=== PATIENT | female | born 1960 | race American Indian/Alaskan Native ===

== ENCOUNTER 2017-04-03 13:20 | Outpatient (CLI) | payer OTHER ==
--- NOTE | 2017-04-07 10:32 | Mammography Report ---
BILATERAL DIGITAL SCREENING MAMMOGRAM with CAD : 04/03/17 13:20:00 CLINICAL: Routine screening. COMPARISON:03/12/16 FINDINGS: The breasts are heterogeneously dense, which may obscure small masses. No mass, architectural distortion or suspicious calcifications. IMPRESSION: No mammographic evidence of malignancy. BI-RADS CATEGORY: 2 -- Benign RECOMMENDATION: Routine mammographic screening in one year. COMMENT: Patient follow-up letters are generated by our [employer] application.
== END 2017-04-03 13:21 | disposition home or self-care (01) ==
LOC: SPVWC 13:20
PROVIDERS: ATTEND Family Medicine
DX: Z12.31 Encounter for screening mammogram for malignant neoplasm of breast (principal)
CPT/HCPCS: 77067; G0202

== ENCOUNTER 2020-06-20 11:01 | Outpatient (CLI) | payer OTHER ==
--- NOTE | 2020-06-20 15:25 | Mammography Report ---
DIGITAL SCREENING MAMMOGRAM, 06/20/2020 CLINICAL INFORMATION / INDICATION: Routine screening mammography. SCREENING MAMMO TECHNIQUE: Digital bilateral 2D mammography was obtained in the craniocaudal and mediolateral obliqu e projections. COMPARISON: Prior mammogram 04/05/2018 and 04/03/2017 FINDINGS: Breast Density: The breasts are heterogeneously dense, which may obscure small masses. No dominant mass, suspicious calcifications, or architectural distortion in either breast. There has been no significant change compared with the prior examinations. IMPRESSION: No mammographic evidence of malignancy. Follow up recommendation: Routine yearly BI-RADS Category 1: Negative. A "normal" or negative report should not discourage follow up or biopsy of a clinically significant f inding. A written summary of these findings will be mailed to the patient. The patient will be entered into a mammography reporting system which will generate a reminder letter for the patient's next appointmen t at the appropriate interval. The [employer] recommends yearly mammograms starting at age 40 and continuing as l williams as a woman is in good health. Breast MRI is recommended for women with an approximate 20-25% or greater lifetime risk of breast cancer, including women with a strong family history of breast or ova to cancer or who have been treated for Hodgkin's disease. Signer Name: Gretchen Pyle MD Signed: 06/20/2020 3:21 PM Workstation Name: [id number]
== END 2020-06-20 11:02 | disposition home or self-care (01) ==
LOC: SPVWC 11:01
PROVIDERS: ATTEND Family Medicine
DX: Z12.31 Encounter for screening mammogram for malignant neoplasm of breast (principal)
CPT/HCPCS: 77067

== ENCOUNTER 2021-03-19 10:40 | Outpatient (CLI) | payer OTHER ==
--- NOTE | 2021-03-19 11:49 | Ultrasound Report ---
BILATERAL DIGITAL DIAGNOSTIC MAMMOGRAM WITH CAD 03/19/2021 LEFT BREAST ULTRASOUND INDICATION: Left breast thickening. TECHNIQUE: Digital bilateral mammographic imaging was performed. This examination was interpreted w ith the benefit of Computer-Aided Detection CAD) analysis. COMPARISON: 06/20/2020, 04/05/2018, 04/03/2017. FINDINGS: Breast Density: The breasts are heterogeneously dense, which may obscure small masses. There is no evidence of dominant mass, suspicious calcifications or architectural distortion in eithe r breast. Coarse benign-appearing calcifications in both breasts appear not significantly changed. No mammographic correlate to explain reported left breast thickening. Ultrasound Findings: Targeted ultrasound focused in the left retroareolar breast at the site of repor karen thickening was performed. There is no suspicious solid or cystic lesion. No evidence of malignanc y. IMPRESSION: No mammographic or sonographic correlate to explain reported left breast thickening for which clinica l management is recommended. A routine screening mammogram in one year would be appropriate, unless i maging is clinically indicated sooner. BI-RADS Category 2: Benign. Recommend routine screening mammography in one year A "normal" or negative report should not discourage follow up or biopsy of a clinically significant f inding. A written summary of these findings will be mailed to the patient. The patient will be entered into a mammography reporting system which will generate a reminder letter for the patient's next appointmen t at the appropriate interval. FURTHER INFORMATION: According to the [employer], yearly mammograms are recommend ed starting at age 40 and continuing as long as a woman is in good health. Breast MRI is recommended for women with an approximately 20-25% or greater lifetime risk of breast cancer, including women wi th a strong family history of breast or ovarian cancer and women who have been treated for Hodgkin's disease. Signer Name: Luisito Vieira MD Signed: 03/19/2021 11:44 AM Workstation Name: [id number]
== END 2021-03-19 10:41 | disposition home or self-care (01) ==
LOC: SPVWC 10:40
PROVIDERS: ATTEND Obstetrics & Gynecology
DX: R92.1 Mammographic calcification found on diagnostic imaging of breast (principal); N60.29 Fibroadenosis of unspecified breast
CPT/HCPCS: 77066